=== PATIENT | male | born 1970 | race Caucasian/White ===

== ENCOUNTER 2023-04-05 10:19 | Outpatient (CLI) | payer BC, SELFPAY ==
--- NOTE | 2023-04-05 10:31 | XR_ITS ---
WS: [id number] XR elbow RT min 3V* [id number] REASON FOR EXAM: R ELBOW JOINT PAIN FINDINGS: No joint effusion. No fracture or focal bone lesion. Joint spaces of the right elbow are intact and well preserved. No soft tissue abnormality. IMPRESSION: No significant abnormality.
--- NOTE | 2023-04-05 10:31 | XR_ITS ---
WS: [id number] XR hip RT 2-3V wo/w pel* [id number] REASON FOR EXAM: R HIP JOINT PAIN FINDINGS: No fracture or focal bone lesion. Mild narrowing of the joint space with mild subchondral sclerosis and osteophytosis of the acetabulum . Mild spurring of the femoral head. No soft tissue abnormality. IMPRESSION: Mild to moderate osteoarthritis of the right hip.
--- NOTE | 2023-04-05 10:31 | XR_ITS ---
WS: [id number] XR knee LT 3V* [id number] REASON FOR EXAM: L KNEE JOINT PAIN FINDINGS: No fracture. Mild old calcification in the mid proximal tibia metadiaphyseal region. Medial and lateral knee joint spaces do not appear significantly narrowed. Patellofemoral joint space is intact and relatively well preserved. IMPRESSION: Possible enchondroma of the proximal tibia. Benign. No significant arthropathic change.
== END 2023-04-05 10:20 | disposition home or self-care (01) ==
PROVIDERS: Visit Provider Family Medicine
DX: M25.521 Pain in right elbow (principal); M25.562 Pain in left knee; M16.11 Unilateral primary osteoarthritis, right hip; R93.6 Abnormal findings on diagnostic imaging of limbs
CPT/HCPCS: 73080; 73502; 73562

== ENCOUNTER 2023-05-02 10:05 | Outpatient (CLI) | payer BC, SELFPAY ==
--- NOTE | 2023-05-02 10:13 | CT_ITS ---
WS: [id number] LDCT LUNG CANCER SCREENING TECHNIQUE: Noncontrast CT of the chest with coronal and sagittal reformatted images. CLINICAL INFORMATION: HX OF TOBACCO USE COMPARISON: None. DLP: 107.19 mGy.cm DIvol: Mean CTDIvol: 2.40 (mGy) All CT scans at [facility] use at least one of these dose optimization techniques: automat ed exposure control; mA and/or kV adjustment per patient size (includes targeted exams where dose is matched to clinical indication); or iterative reconstruction. FINDINGS: Lungs are well aerated. No acute pulmonary infiltrates. No focal pneumonia or pleural fluid. Mild par aseptal emphysematous change. Normal caliber thoracic aorta. No mediastinal or hilar lymphadenopathy. No axillary lymphadenopathy. Tiny calcified granuloma LEFT lower lobe. Adrenal glands are normal. Normal GE junction. Normal thoracic spine. IMPRESSION: CT/CT lung screening [id number] LUNG-RADS: 2-Benign Appearance or Behavior FOLLOW UP: 12 Month: Continue annual screening with LDCT
== END 2023-05-02 10:06 | disposition home or self-care (01) ==
LOC: RAD 10:05
PROVIDERS: Visit Provider Family Medicine
DX: Z12.2 Encounter for screening for malignant neoplasm of respiratory organs (principal); Z87.891 Personal history of nicotine dependence
CPT/HCPCS: 71271